=== PATIENT | male | born 1960 | race Caucasian/White ===

== ENCOUNTER 2021-07-05 23:17 | Inpatient (IN) | payer MEDICAID ==
[~2021-07-05] VITALS: Ht 175.3 cm; Wt 64.4 kg
[2021-07-06 00:31] LABS: HEMATOCRIT. 44.5 % (42.0-52.0); MEAN CORPUSCULAR HEMOGLOBIN 31.9 pg (28.0-32.0); MEAN CORPUSCULAR VOLUME 94.5 fL (80.0-94.0); MEAN PLATELET VOLUME 7.9 fl (7.4-10.4); PLATELET 166 x1000/uL (130-400); RED BLOOD CELL COUNT 4.71 mill/uL (4.7-6.1); RED CELL DISTRIBUTION WIDTH 13.4 % (11.6-14.6)
[2021-07-06 00:38] LABS: CHLORIDE 104 mEq/L (98-107)
[2021-07-06 00:40] LABS: PROTHROMBIN TIME 10.7 sec (9.6-11.0)
[2021-07-06] MEDS ORDERED: FOLIC ACID 1 MG, THIAMINE HCL 100 MG, MVI, ADULT NO.1 10 ML in DEXTROSE 5% WATER 1,000 ML IV ONE (05:30)
[2021-07-06 05:42] LABS: PLATELET ESTIMATE NORMAL
[2021-07-06] MEDS ORDERED: FOLIC ACID 1 MG, THIAMINE HCL 100 MG, MVI, ADULT NO.1 10 ML in DEXTROSE 5% WATER 1,000 ML IV NR (06:30)
[2021-07-06] MEDS ORDERED: MULTIVITAMINS,THER W-MINERALS TABLET PO NR (06:30)
[2021-07-06] MEDS ORDERED: FOLIC ACID 1 MG, THIAMINE HCL 100 MG in DEXTROSE 5% WATER 1,000 ML IV NR (06:30)
[2021-07-06] MEDS ORDERED: IOHEXOL-300 100 ML BOTTLE ONE (07:33)
[2021-07-06] MEDS ORDERED: IPRATROPIUM/ALBUTEROL 0.5-3(2.5)MG/3ML NEB HHN PRN (08:45)
[2021-07-06] MEDS ORDERED: DIPHENHYDRAMINE 50MG/ML VIAL IV PRN (08:45)
[2021-07-06] MEDS ORDERED: ACETAMINOPHEN 325MG TABLET PO PRN (08:45)
[2021-07-06] MEDS ORDERED: CEFTRIAXONE 1 G PREMIX 50 ML IV SCH (08:45)
[2021-07-06] MEDS ORDERED: SODIUM CHLORIDE 0.9% 1,000 ML IV SCH (08:45)
[2021-07-06] MEDS ORDERED: CLONIDINE 0.1MG TABLET PO PRN (08:45)
[2021-07-06 08:58] LABS: CLARITY URINE CLEAR (CLEAR); COLOR URINE YELLOW (YELLOW); KETONES URINE 3+ (NEGATIVE); LEUKOCYTE ESTERASE URINE NEGATIVE (NEGATIVE); NITRITE URINE NEGATIVE (NEGATIVE); OCCULT BLOOD URINE TRACE (NEGATIVE); PH URINE 5.5 (4.5-8.0); PROTEIN URINE 1+ (NEGATIVE); UROBILINOGEN URINE 0.2 E.U./dL (0.2-1.0)
[2021-07-06 09:32] VITALS: BP 138/66
[2021-07-06] MEDS: ONDANSETRON HCL 4MG/2ML INJ IV PRN ×3 (09:54→21:02)
[2021-07-06] MEDS: MORPHINE SULFATE 2 MG/ML CPJ (NOT FOR IM USE) IV PRN ×3 (09:55→22:13)
[2021-07-06] MEDS ORDERED: CEFTRIAXONE 1,000 MG in DEXTROSE 5% WATER 50 ML IV SCH (10:00)
[2021-07-06] MEDS ORDERED: MULT-1204 MT (10:34)
[2021-07-06 11:49] VITALS: BP 126/57
[2021-07-06] MEDS ORDERED: BISACODYL 10MG SUPP PR PRN (13:30)
[2021-07-06] MEDS ORDERED: BISACODYL 10MG SUPP PR SCH (13:30)
[2021-07-06] MEDS: DEXT 5%/0.45% NACL 1000ML 1,000 ML IV SCH (13:41)
[2021-07-06] MEDS: PANTOPRAZOLE SODIUM 40 MG/VIAL IV SCH (13:41)
[2021-07-06] MEDS: CEFTRIAXONE 1,000 MG in DEXTROSE 5% WATER 50 ML IV SCH (13:42)
[2021-07-06] MEDS: METRONIDAZOLE 500 MG PREMIX 100 ML IV SCH ×2 (15:58→21:06)
[2021-07-06 16:19] VITALS: BP 126/69
[2021-07-06 17:55] LABS: PHOSPHORUS 2.2 mg/dL (2.5-4.9)
[2021-07-06 19:04] LABS: *AMPHETAMINES SCREEN URINE NEGATIVE (NEGATIVE); *BARBITURATES SCREEN URINE NEGATIVE (NEGATIVE)
[2021-07-06 19:05] LABS: *BENZODIAZEPINES SCREEN URINE NEGATIVE (NEGATIVE); *COCAINE SCREEN URINE NEGATIVE (NEGATIVE); METHADONE URINE SCREEN NEGATIVE (NEGATIVE); OPIATES URINE SCREEN PRESUMTIVE POSITIVE (NEGATIVE); PHENCYCLIDINE URINE SCREEN NEGATIVE (NEGATIVE)
[2021-07-06 19:06] LABS: CANNABINOID URINE SCREEN NEGATIVE (NEGATIVE)
[2021-07-06 20:00] VITALS: BP 131/64
[2021-07-06] MEDS ORDERED: NALOXONE HCL 0.4MG/ML VIAL IV PRN (20:15)
[2021-07-06] MEDS ORDERED: MINERAL OIL ENEMA 133ML PR SCH (21:00)
[2021-07-07] VITALS: BP 119/68
[2021-07-07] MEDS: ONDANSETRON HCL 4MG/2ML INJ IV PRN ×2 (03:14→09:25)
[2021-07-07] MEDS: DEXT 5%/0.45% NACL 1000ML 1,000 ML IV SCH ×3 (03:33→17:31)
[2021-07-07] MEDS: CHLORDIAZEPOXIDE 5 MG CAPSULE PO SCH ×3 (03:58→21:04)
[2021-07-07 04:00] VITALS: BP 111/51
[2021-07-07 06:30] LABS: BASOPHILS % 0.2 % (0.0-2.0); EOSINOPHILS % 0.1 % (0.0-5.0); HEMATOCRIT. 34.8 % (42.0-52.0); HEMOGLOBIN. 11.8 g/dL (14.0-18.0); LYMPHOCYTES % 7.7 % (20.0-50.0); MEAN CORPUSCULAR VOLUME 94.2 fL (80.0-94.0); MEAN PLATELET VOLUME 8.2 fl (7.4-10.4); MONOCYTES % 6.3 % (2.0-8.0); NEUTROPHILS % 85.7 % (40.0-76.0); PLATELET 124 x1000/uL (130-400); RED BLOOD CELL COUNT 3.69 mill/uL (4.7-6.1); RED CELL DISTRIBUTION WIDTH 13.3 % (11.6-14.6)
[2021-07-07 06:40] LABS: CHLORIDE 108 mEq/L (98-107)
[2021-07-07 06:52] LABS: LDL CHOLESTEROL 103 mg/dL (5-100)
[2021-07-07] MEDS: METRONIDAZOLE 500 MG PREMIX 100 ML IV SCH ×3 (06:56→21:05)
[2021-07-07 06:57] LABS: HDL CHOLESTEROL 67 mg/dL (40-59)
[2021-07-07 08:00] VITALS: BP 127/61
[2021-07-07 08:24] LABS: HEPATITIS B SURFACE ANTIGEN NEGATIVE
[2021-07-07] MEDS: PANTOPRAZOLE SODIUM 40 MG/VIAL IV SCH (09:25)
[2021-07-07 12:00] VITALS: BP 115/56
[2021-07-07] MEDS: CEFTRIAXONE 1,000 MG in DEXTROSE 5% WATER 50 ML IV SCH (13:25)
[2021-07-07 16:00] VITALS: BP 103/66
[2021-07-07] MEDS: DOCUSATE SODIUM 100MG CAPSULE PO SCH (17:31)
[2021-07-07 20:00] VITALS: BP 111/57
[2021-07-07] MEDS ORDERED: SENNOSIDES/DOCUSATE SOD 8.6/50MG TABLET PO SCH (21:00)
[2021-07-07] MEDS: FAMOTIDINE 20MG/2ML VIAL IV SCH (21:05)
[2021-07-08 00:04] VITALS: BP 107/62
[2021-07-08 04:00] VITALS: BP 114/65
[2021-07-08] MEDS: METRONIDAZOLE 500 MG PREMIX 100 ML IV SCH ×2 (05:23→14:16)
[2021-07-08] MEDS: DEXT 5%/0.45% NACL 1000ML 1,000 ML IV SCH ×2 (05:23→15:49)
[2021-07-08] MEDS: CHLORDIAZEPOXIDE 5 MG CAPSULE PO SCH ×2 (05:23→14:16)
[2021-07-08 07:00] LABS: BASOPHILS % 0.3 % (0.0-2.0); EOSINOPHILS % 0.7 % (0.0-5.0); HEMATOCRIT. 37.5 % (42.0-52.0); HEMOGLOBIN. 12.8 g/dL (14.0-18.0); LYMPHOCYTES % 21.2 % (20.0-50.0); MEAN CORPUSCULAR HEMOGLOBIN 31.9 pg (28.0-32.0); MEAN CORPUSCULAR VOLUME 93.2 fL (80.0-94.0); MONOCYTES % 7.9 % (2.0-8.0); NEUTROPHILS % 69.9 % (40.0-76.0); PLATELET 99 x1000/uL (130-400); RED BLOOD CELL COUNT 4.02 mill/uL (4.7-6.1)
[2021-07-08 07:03] LABS: CHLORIDE 103 mEq/L (98-107)
[2021-07-08] MEDS: DOCUSATE SODIUM 100MG CAPSULE PO SCH ×2 (09:24→19:43)
[2021-07-08] MEDS: FAMOTIDINE 20MG/2ML VIAL IV SCH (09:24)
[2021-07-08 12:00] VITALS: BP 135/75
[2021-07-08] MEDS ORDERED: POTASSIUM CHLORIDE INJ 40 MEQ in DEXT 5% WATER 250 ML IV SCH (13:00)
[2021-07-08] MEDS: CEFTRIAXONE 1,000 MG in DEXTROSE 5% WATER 50 ML IV SCH (14:17)
[2021-07-08 16:00] VITALS: BP 117/66
[2021-07-08 20:00] VITALS: BP 111/77
== END 2021-07-08 21:00 | disposition left against medical advice (07) | DRG 249 ==
LOC: ER 23:17 → MICUSO 07-06 05:36 → 6WST 07-06 09:17
PROVIDERS: ADMIT Internal Medicine; ATTEND Internal Medicine
DX: K52.9 Noninfective gastroenteritis and colitis, unspecified (principal); E46 Unspecified protein-calorie malnutrition; K76.0 Fatty (change of) liver, not elsewhere classified; K56.41 Fecal impaction; R74.01 Elevation of levels of liver transaminase levels; F10.929 Alcohol use, unspecified with intoxication, unspecified; Y90.0 Blood alcohol level of less than 20 mg/100 ml; Z53.29 Procedure and treatment not carried out because of patient's decision for other reasons; E86.0 Dehydration; R00.0 Tachycardia, unspecified; Z91.19 Patient's noncompliance with other medical treatment and regimen; Z68.21 Body mass index [BMI] 21.0-21.9, adult
CPT/HCPCS: 36415; 71045; 74177; 80048; 80053; 80061; 80076; 80305; 80320; 81003; 82248; 83735; 84100; 84443; 84484; 85025; 86705; 86709; 86803; 87340; 93970; 99285; C9113; J0696; J2270; J2405; J3411; J3480; J3490; J7030; J7060; J7070; Q9967; G0480